=== PATIENT | male | born 1960 | race Caucasian/White ===

== ENCOUNTER → 2018-02-17 | Outpatient (REF) | payer MEDICARE, MEDICAID | LOC: M LAB REF 15:03 | DX: L08.9 Local infection of the skin and subcutaneous tissue, unspecified (principal) | CPT/HCPCS: 87186 ==

== ENCOUNTER → 2018-11-30 | Outpatient (REF) | payer MEDICARE, MEDICAID | LOC: M LAB REF 19:07 | PROVIDERS: ATTEND Surgery | DX: C44.42 Squamous cell carcinoma of skin of scalp and neck (principal) ==

== ENCOUNTER 2020-02-27 10:57 | Emergency (ER) | payer MEDICAID, MEDICARE ==
[~2020-02-27] VITALS: Ht 182.9 cm; Wt 109.1 kg
[2020-02-27 12:35] LABS: BASO % 0.3 % (0.0-1.0); EOS % 0.3 % (0.0-3.0); HEMATOCRIT 54.1 % (42.0-52.0); HEMOGLOBIN 18.3 g/dl (13.5-17.5); LYMPH # 0.9 10^3/uL (1.5-5.0); LYMPH % 12.4 % (24.0-44.0); MEAN CORPUSCULAR HGB CONC 33.8 g/dl (32.0-36.5); MEAN CORPUSCULAR VOLUME 88.5 fl (80.0-96.0); MONO # 0.8 10^3/uL (0.0-0.8); NEUTROPHILS # 5.1 10^3/uL (1.5-8.5); NEUTROPHILS % 74.6 % (36.0-66.0); PLATELET COUNT, AUTOMATED 200 10^3/uL (150-450); RED BLOOD COUNT 6.11 10^6/uL (4.30-6.10); WHITE BLOOD COUNT 6.9 10^3/uL (4.0-10.0)
[2020-02-27] MEDS ORDERED: TEMA30CA PO (12:41)
[2020-02-27] MEDS ORDERED: PANT40TA29 PO (12:41)
[2020-02-27] MEDS ORDERED: NOVOINJ3 SC (12:41)
[2020-02-27] MEDS ORDERED: HYDR50TA70 PO (12:41)
[2020-02-27] MEDS ORDERED: FLUT1BLS5 INH (12:41)
[2020-02-27] MEDS ORDERED: JARD1TAB PO (12:41)
[2020-02-27] MEDS ORDERED: SULF400T14 PO (12:41)
[2020-02-27] MEDS ORDERED: LEVE1INJ5 SC (12:41)
[2020-02-27] MEDS ORDERED: TACR1CAP3 PO (12:41)
[2020-02-27] MEDS ORDERED: POTA1TAB23 PO (12:41)
[2020-02-27] MEDS ORDERED: METO1TAB87 PO (12:41)
[2020-02-27] MEDS ORDERED: LOSA100T50 PO (12:41)
[2020-02-27] MEDS ORDERED: ROSU10TA6 PO (12:41)
[2020-02-27] MEDS ORDERED: FAMO1TAB11 PO (12:41)
[2020-02-27] MEDS ORDERED: MONT10TA4 PO (12:41)
[2020-02-27] MEDS ORDERED: AZIT-12 PO (12:41)
[2020-02-27] MEDS ORDERED: SPORCAP PO (12:41)
[2020-02-27] MEDS ORDERED: HYDR25TAB PO (12:41)
[2020-02-27] MEDS ORDERED: PRED5TA PO (12:41)
[2020-02-27] MEDS ORDERED: ALEN70TA74 PO (12:41)
[2020-02-27] MEDS ORDERED: ROPI0.5T3 PO (12:41)
[2020-02-27 12:58] LABS: ALBUMIN 3.4 GM/DL (3.2-5.2); ALT/SGPT 33 U/L (12-78); BILIRUBIN,DIRECT 0.2 MG/DL (0.0-0.2); BILIRUBIN,TOTAL 0.5 MG/DL (0.2-1.0); BLOOD UREA NITROGEN 29 MG/DL (7-18); CALCIUM LEVEL 9.3 MG/DL (8.5-10.1); CARBON DIOXIDE LEVEL 27 MEQ/L (21-32); CHLORIDE LEVEL 98 MEQ/L (98-107); CREATININE FOR GFR 1.77 MG/DL (0.70-1.30); GLOMERULAR FILTRATION RATE 42.1 (>56); GLUCOSE, FASTING 125 MG/DL (70-100); SODIUM LEVEL 132 MEQ/L (136-145); TOTAL PROTEIN 7.4 GM/DL (6.4-8.2)
[2020-02-27 13:18] LABS: INR 0.97; PROTHROMBIN TIME 13.1 SECONDS (12.5-14.3)
[2020-02-27 13:19] LABS: PARTIAL THROMBOPLASTIN TIME 32.7 SECONDS (24.2-38.5)
[2020-02-27 13:21] LABS: D-DIMER QUANT 744.09 ng/ml (<500)
[2020-02-27 13:28] LABS: C REACTIVE PROTEIN QUANTITATIV 4.83 MG/DL (0.00-0.30); CK-MB VALUE MASS 1.2 NG/ML (<3.6); CPK CREATINE PHOSPHOKINASE 122 U/L (39-308); FERRITIN 141 NG/ML (26-388); LDH LACTATE DEHYDROGENASE 388 U/L (87-241); MB/CK RELATIVE INDEX 0.98 (< OR =4); TROPONIN I < 0.02 NG/ML (< 0.10)
--- NOTE | 2020-02-27 13:49 | REP ---
INDICATION: Coronavirus workup. COMPARISON: 02/27/2006 FINDINGS: The technique utilized in obtaining the radiograph has magnified the cardiac silhouette and accentuated the interstitial markings. There is cardiomegaly accentuated by technique. 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 I cannot rule out the possibility of an acute patchy parenchymal opacity superimposed over chronic change in the left lower lobe. There is a dual chamber bipolar pacemaker device which appears stable. There is no change in the osseous structures. IMPRESSION: Chronic changes as described above, however, possible new left lower lobe opacity seen on this limited portable examination of the chest. <Electronically signed by George Shaver > 02/27/20 [id number]
[2020-02-27] MEDS ORDERED: DEXA6TAB PO (16:18)
[2020-02-27] MEDS ORDERED: LEVO750T13 PO (16:18)
[2020-02-27] MEDS ORDERED: ONDA4TAB6 PO (16:26)
[2020-02-27 17:45] VITALS: BP 147/101
--- NOTE | 2020-02-27 23:55 | ECGEPIP ---
[facility] - ED Test Date: 2020-02-27 Pat Name: MACI FRANKY Department: Room: - Gender: Male Head [employer] Tester: : 1960 Requested By: JESUS Bower Order Number: [id number] Reading MD: Milton Perry Measurements Intervals [place] Rate: 66 P: -7 [place]: 190 QRS: 86 QRSD: 105 T: 0 QT: 422 QTc: 442 Interpretive Statements SINUS RHYTHM NSTTW ABNORMALITY(S) BASELINE ARTIFACT AFFECTS INTERPRETATION NO PRIORS FOR COMPARISON Electronically Signed on 02-27-2020 23:55:21 EST by Milton Perry
== END 2020-02-27 18:01 | disposition home or self-care (01) ==
LOC: M ED 10:57
DX: U07.1 COVID-19 (principal); J12.89 Other viral pneumonia; R11.0 Nausea; R06.02 Shortness of breath; E78.5 Hyperlipidemia, unspecified; I12.9 Hypertensive chronic kidney disease with stage 1 through stage 4 chronic kidney disease, or unspecified chronic kidney disease; N18.30 Chronic kidney disease, stage 3 unspecified; J84.10 Pulmonary fibrosis, unspecified; Z94.2 Lung transplant status; Z95.0 Presence of cardiac pacemaker; Z91.040 Latex allergy status; Z79.899 Other long term (current) drug therapy; Z79.2 Long term (current) use of antibiotics; Z79.4 Long term (current) use of insulin

== ENCOUNTER → 2022-01-14 | Outpatient (REF) | payer MEDICARE, MEDICAID ==
[~2022-01-14] MED LIST: ALEN70TA82 PO; AZIT-12 PO; DEXA6TAB PO; FAMO1TAB11 PO; FLUT1BLS5 INH; HYDR-3490 PO; HYDR50TA70 PO; JARD1TAB PO; LEVE1INJ5 SC; LEVO1TAB40 PO; LOSA100T45 PO; METO1TAB87 PO; MONT10TA97 PO; NOVOINJ3 SC; ONDA4TAB6 PO; PANT40TA29 PO; POTA1TAB23 PO; PRED5TA PO; ROPI0.5T3 PO; ROSU10TA6 PO; SPORCAP PO; SULF400T14 PO; TACR1CAP3 PO; TEMA30CA PO
== END ==
LOC: M SFHCDERM 08:28
PROVIDERS: ATTEND Dermatology
DX: C44.201 Unspecified malignant neoplasm of skin of unspecified ear and external auricular canal (principal)

== ENCOUNTER → 2023-07-28 | Outpatient (REF) | payer MEDICARE, MEDICAID ==
[~2023-07-28] MED LIST changes: +INSU100I6 SC; -LEVE1INJ5 SC; -LOSA100T45 PO; +LOSA100T46 PO; -ROPI0.5T3 PO; +ROPI0.5T33 PO; +SPOR1CAP2 PO; -SPORCAP PO
== END ==
LOC: M LAB REF 17:15
PROVIDERS: ATTEND Podiatrist
DX: L03.031 Cellulitis of right toe (principal)

== ENCOUNTER → 2024-01-26 | Outpatient (CLI) | payer MEDICARE, MEDICAID ==
[~2024-01-26] MED LIST changes: +ONDA-282 PO; -ONDA4TAB6 PO; -ROSU10TA6 PO; +ROSU10TA61 PO
== END ==
LOC: M RAD 07:00
PROVIDERS: ATTEND Internal Medicine Gastroenterology
DX: R11.2 Nausea with vomiting, unspecified (principal)
CPT/HCPCS: 78264; A9541

== ENCOUNTER → 2024-05-11 | Outpatient (REF) | payer OTHER, MEDICARE, MEDICAID ==
[2024-05-11 13:06] LABS: APPEARANCE, URINE CLEAR (CLEAR); BACTERIA, URINE AUTO NEGATIVE (NEGATIVE); BILIRUBIN, URINE AUTO NEGATIVE (NEGATIVE); BLOOD, URINE BLOOD NEGATIVE (NEGATIVE); COLOR, URINE YELLOW (YELLOW); GLUCOSE, URINE (UA) AUTO 3+ mg/dL (NEGATIVE); KETONE, URINE AUTO NEGATIVE (NEGATIVE); LEUKOCYTE ESTERASE, URINE AUTO NEGATIVE (NEGATIVE); NITRITE, URINE AUTO NEGATIVE (NEGATIVE); PROTEIN, URINE AUTO NEGATIVE (NEGATIVE); RBC, URINE AUTO 0 /HPF (0-3); SPECIFIC GRAVITY URINE AUTO 1.018 (1.002-1.035); SQUAMOUS EPITHELIAL CELL UR AU 0 /HPF (0-6); UROBILINOGEN, URINE AUTO 0.2 mg/dL (0.0-2.0); WBC, URINE AUTO 1 /HPF (0-3)
== END ==
LOC: M SMT 12:23
PROVIDERS: ATTEND Urology
DX: N40.0 Benign prostatic hyperplasia without lower urinary tract symptoms (principal)

== ENCOUNTER → 2024-08-02 | Outpatient (REF) | payer OTHER, MEDICARE, MEDICAID | LOC: M SFHCDERM 17:21 | PROVIDERS: ATTEND Physician Assistant | DX: D48.5 Neoplasm of uncertain behavior of skin (principal); C44.629 Squamous cell carcinoma of skin of left upper limb, including shoulder ==

== ENCOUNTER → 2024-10-26 | Outpatient (REF) | payer OTHER, MEDICARE, MEDICAID | LOC: M LAB REF 16:40 | PROVIDERS: ATTEND Podiatrist | DX: L03.119 Cellulitis of unspecified part of limb (principal) ==

== ENCOUNTER → 2024-10-31 | Outpatient (CLI) | payer OTHER, MEDICAID | LOC: M RAD 10:53 | PROVIDERS: ATTEND Podiatrist | DX: M79.662 Pain in left lower leg (principal) ==